=== PATIENT | female | born 1985 | race American Indian/Alaskan Native ===

== ENCOUNTER 2017-02-06 15:27 | Emergency (ER) | payer BC ==
[2017-02-06 15:50] VITALS: BP 104/70
--- NOTE | 2017-02-06 17:07 | Emergency Department Report ---
ED Rash HPI - HPI Chief Complaint: Skin Rash Stated Complaint: RASH Time Seen by Provider: 02/06/17 17:07 Rash Symptoms: Yes Itching, No Facial Swelling, No Tongue/Oral Swelling, No Breathing Difficulties, No Choking Sensation, No Wheezing/Dyspnea, No Peeling, No Blistering, No Fever, No Lightheaded, No Malaise, No Myalgias Severity: mild ED Review of Systems ROS: Stated complaint: RASH Other details as noted in HPI Constitutional: denies: see HPI, chills, diaphoresis, fever, malaise Eyes: denies: eye discharge ENT: throat pain Respiratory: cough Cardiovascular: denies: chest pain, dyspnea on exertion, syncope Gastrointestinal: abdominal pain. denies: nausea, vomiting Skin: rash, pruritus. denies: lesions, change in color, change in hair/nails Neurological: denies: headache ED Past Medical Hx - Past Medical History Additional medical history: MENINGITIS - Surgical History Past Surgical History?: No - Social History Smoking Status: Current Every Day Smoker Substance Use Type: Alcohol - Medications Home Medications: Home Medications Medication Instructions Recorded Confirmed Last Taken Type hydrOXYzine HCL [Atarax] 25 mg PO Q6HR #30 tablet 02/06/17 Unknown Rx Rash Exam - Exam General: Vital signs noted. No distress. Alert and acting appropriately. HEENT: No Periorbital Edema, No Conjuctival Injection, No Chemosis, No Perioral Edema, No Tongue Edema, No Uvular Edema, No Compromised Airway, No Drooling Lungs: Yes Good Air Exchange, No Wheezes, No Ronchi, No Stridor, No Cough, No Labored Respirations, No Retractions, No Use of Accessory Muscles, No Other Abnormal Lung Sounds Skin: Yes Weeping, Yes Encrustations (linear dsitribution c/w foliage contact dermatitis), No Urticarial Rash, No Maculopapular Rash, No Morbilliform rash, No Bulla(e), No Excoriations, No Tenderness, No Erythema, No Edema, No Other Other: Positive: Abdomen Normal, Neurologic Normal ED Course Vital Signs 02/06/17 15:44 Temperature 98.5 F Pulse Rate 78 Respiratory 16 Rate Blood Pressure 104/70 O2 Sat by Pulse 100 Oximetry Critical care attestation.: If time is entered above; I have spent that time in minutes in the direct care of this critically ill patient, excluding procedure time. ED Disposition Clinical Impression: Contact dermatitis Disposition: DISCHARGED TO HOME OR SELFCARE Is pt being admited?: No Condition: Stable Instructions: Contact Dermatitis (ED) Prescriptions: hydrOXYzine HCL [Atarax] 25 mg PO Q6HR #30 tablet Referrals: PRIMARY CARE, [Primary Care Provider] - 3-5 Days
== END 2017-02-06 17:53 | disposition home or self-care (01) ==
LOC: ED 15:27
DX: L25.9 Unspecified contact dermatitis, unspecified cause (principal); F17.200 Nicotine dependence, unspecified, uncomplicated; G03.9 Meningitis, unspecified
CPT/HCPCS: 99282